=== PATIENT | female | born 1970 | race Two or more races ===

== ENCOUNTER 2020-09-07 10:45 | Inpatient (IN) | payer OTHER ==
[~2020-09-07] VITALS: Ht 160 cm; Wt 72.6 kg
[2020-09-15] MEDS ORDERED: CHLORASEPTIC20 ML PO (07:41)
[2020-09-15] MEDS ORDERED: IBUPROFEN800 MG PO (07:41)
[2020-09-15] MEDS ORDERED: ZITHROMAX200 MG PO (07:42)
== END 2020-09-15 10:04 | disposition home or self-care (01) | DRG 743 ==
LOC: ADM 10:45 → EDSTATUS 09-09 07:45 → ADM 09-09 11:00 → OB/GYN 09-13 07:45 → O/R 09-13 08:23 → OB/GYN 09-13 08:23
PROVIDERS: ADMIT Obstetrics & Gynecology Gynecology; ATTEND Obstetrics & Gynecology Gynecology
PROC: 0USG0ZZ Reposition Vagina, Open Approach (ICD-10-PCS; 2020-09-13)
PROC: 0UT50ZZ Resection of Right Fallopian Tube, Open Approach (ICD-10-PCS; 2020-09-13)
PROC: 0UT90ZZ Resection of Uterus, Open Approach (ICD-10-PCS; principal; 2020-09-13 13:45)
DX: D25.1 Intramural leiomyoma of uterus (principal); Z20.822 Contact with and (suspected) exposure to COVID-19